=== PATIENT | female | born 1985 | race Caucasian/White ===

== ENCOUNTER 2021-10-01 17:27 | Emergency (ER) | payer OTHER ==
[~2021-10-01] VITALS: Ht 162.6 cm; Wt 61.7 kg
--- NOTE | 2021-10-01 17:46 | NUR ---
PT IS IN ROOM #2B. DR APPLE EVALUATED THE PT.
[2021-10-01 17:56] LABS: HEMATOCRIT 32.4 % (31.2-41.9); MEAN CORPUSCULAR HEMOGLOBIN 29.3 uug (24.7-32.8); PLATELET COUNT (AUTO) 191 K/uL (179-408)
[2021-10-01 18:01] LABS: *BILIRUBIN,URIN NEGATIVE (NEGATIVE); *BLOOD, URINE 2+ (NEGATIVE); *COLOR,URINE YELLOW (YELLOW); *KETONES,URINE NEGATIVE (NEGATIVE); *UROBILINOGEN,URINE 0.2 E.U./dl (NORMAL); LEUKOCYTE ESTERASE ,URINE NEGATIVE (NEGATIVE); NITRITE, URINE NEGATIVE (NEGATIVE); UGLUCOSE NEGATIVE (NEGATIVE)
[2021-10-01 18:06] LABS: CARBON DIOXIDE 23 mmol/L (21-32); CHLORIDE 103 mmol/L (98-107); CREATININE 0.5 mg/dL (0.6-1.3); GLUCOSE 111 mg/dL (74-106); POTASSIUM 3.3 mmol/L (3.5-5.1); UREA NITROGEN, BLOOD 18 mg/dL (7-18)
[2021-10-01] MEDS ORDERED: PREN1TAB81 PO (18:07)
[2021-10-01 18:21] LABS: *CLARITY,URINE SLIGHTLY HAZY (CLEAR); RBC,URINE 20-50 /HPF (0-3)
[2021-10-01 18:22] LABS: BACTERIA,URINE FEW /HPF (NONE SEEN); SQUAMOUS EPITHELIAL CELL,UR MODERATE /HPF (NONE SEEN)
--- NOTE | 2021-10-01 19:00 | NUR ---
received report from day shift RN.
--- NOTE | 2021-10-01 20:38 | NUR ---
Patient discharged to home in stable condition. Written and verbal after care instructions given. Patient verbalizes understanding of instructions. Stressed follow up or return to ER for worsening s/s. pt ambulated with steady gait. denies pain. no sob. no chest pain.
[2021-10-01 20:39] VITALS: BP 106/70
== END 2021-10-01 20:40 | disposition home or self-care (01) ==
LOC: ER 17:33
DX: O20.0 Threatened abortion (principal); Z3A.12 12 weeks gestation of pregnancy; O99.282 Endocrine, nutritional and metabolic diseases complicating pregnancy, second trimester
CPT/HCPCS: 36415; 76856; 85025; 86850; 86900; 86901; 87086; A4663